=== PATIENT | male | born 1950 | race Caucasian/White ===

== ENCOUNTER 2017-04-26 05:50 | Day surgery (SDC) | payer MEDICARE, OTHER ==
[~2017-04-26] VITALS: Ht 190.5 cm; Wt 102.3 kg
[~2017-04-26 05:50] MED LIST: NAPROSYN500 M1 PO; PREDNISONE PO; PRILOSEC PO; PRILOSEC20 MG PO; VICODIN 5/500 T1 TAB PO
[2017-04-26 06:52] LABS: BASO % 0.5 % (0-2); EOSINOPHIL ABSOLUTE COUNT 0.2 tho/cmm (0.0-0.7); HCT-HEMATOCRIT 46.4 % (36.0-53.5); HGB-HEMOGLOBIN 16.3 gm/dl (13.5-17.0); IMMATURE GRANULOCYTES ABSOLUTE 0.01 tho/cmm (0-0.03); IMMATURE GRANULOCYTES PERCENT 0.2 % (0-0.3); LYMPH % 21.9 % (20-45); LYMPH ABSOLUTE COUNT 1.3 tho/cmm (0.8-4.5); MCH (MEAN CORPUSCULAR HGB) 33.1 pg (28.0-32.0); MCHC MEAN CORPUSCULAR HGB CONC 35.1 % (32.0-36.0); MCV (MEAN CELL VOLUME) 94.3 fl (82.0-96.0); MEAN PLATELET VOLUME 9.5 cmc (9.4-12.4); MONOCYTE ABSOLUTE COUNT 0.5 tho/cmm (0.0-1.2); NEUTROPHIL ABSOLUTE COUNT 3.9 tho/cmm (1.6-8.0); NEUTROPHIL-AUTOMATED 3.9 tho/cmm (1.6-8.0); NEUTROPHILS % 65.4 % (40-80); PLATELET COUNT 211 tho/cmm (150-450); RED BLOOD COUNT 4.92 mil/cmm (4.40-5.70)
[2017-04-26 07:04] LABS: PROTHROMBIN TIME 11.6 SECONDS (9.0-13.6)
[2017-04-26 07:12] LABS: ANION GAP 9 mmol/L (0-20); BLOOD UREA NITROGEN 17 mg/dl (6-24); CALCIUM 9.3 mg/dl (8.5-10.5); CARBON DIOXIDE-VENOUS 26 mmol/L (22-32); CHLORIDE 107 mmol/l (96-110); CREATININE 1.36 mg/dl (0.60-1.30); GLUCOSE 117 mg/dL (70-110); POTASSIUM 4.3 mmol/L (3.7-5.1); SODIUM 138 mmol/L (135-145); eGFR VALUE FOR BLACK 62 mL/Min
== END 2017-04-26 12:50 ==
LOC: SHSB 05:50 → RADSP 05:50 → SHSB 05:59 → RADSP 08:00
PROVIDERS: Radiology Diagnostic Radiology
PROC: B41CYZZ Fluoroscopy of Pelvic Arteries using Other Contrast (ICD-10-PCS; principal; 2017-04-26)
PROC: B41FYZZ Fluoroscopy of Right Lower Extremity Arteries using Other Contrast (ICD-10-PCS; 2017-04-26)
PROC: B41GYZZ Fluoroscopy of Left Lower Extremity Arteries using Other Contrast (ICD-10-PCS; 2017-04-26)
DX: I70.223 Atherosclerosis of native arteries of extremities with rest pain, bilateral legs (principal); K21.9 Gastro-esophageal reflux disease without esophagitis; M10.9 Gout, unspecified; Z79.1 Long term (current) use of non-steroidal anti-inflammatories (NSAID); Z88.5 Allergy status to narcotic agent
CPT/HCPCS: C1769; C1887; J2250; J3010; J7030; J7040; Q9967